=== PATIENT | female | born 1995 | race African-American/Black ===

== ENCOUNTER 2016-12-01 09:55 | Emergency (ER) | payer BC ==
[~2016-12-01] VITALS: Ht 175.3 cm; Wt 111.0 kg
[2016-12-01] MEDS ORDERED: KETOROLAC 60MG/2ML VIAL IM ONE (12:15)
[2016-12-01 13:43] VITALS: BP 118/72
== END 2016-12-01 14:04 | disposition home or self-care (01) ==
LOC: ER 09:55
DX: S46.912A Strain of unspecified muscle, fascia and tendon at shoulder and upper arm level, left arm, initial encounter (principal); V49.88XA Car occupant (driver) (passenger) injured in other specified transport accidents, initial encounter; Y93.89 Activity, other specified; Y92.89 Other specified places as the place of occurrence of the external cause; Y99.8 Other external cause status
CPT/HCPCS: 73030; 73090; 81025; 96372; 99284; J1885